=== PATIENT | male | born 1965 | race Caucasian/White ===

== ENCOUNTER 2022-08-17 12:32 | Emergency (ER) | payer MEDICARE ==
[~2022-08-17] VITALS: Ht 188 cm; Wt 106.6 kg
--- NOTE | 2022-08-17 13:15 | ED Integumentary General ---
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 PT REPORTS SEEING THE SPIDER BITE HIS ARM. Source: patient Exam Limitations: no limitations (DONN HERNANDEZ APRN) History of Present Illness Date Seen by Provider: Aug 17, 2022 Time Seen by Provider: 13:00 Initial Comments 57-year-old male presents the ER with reports of a brown recluse spider bite which occurred shortly prior to arrival on his right forearm. Patient reports he saw the spider. He states he has been bitten by brown recluse's in the past and received steroid shots. (DONN HERNANDEZ APRN) Allergies and Home Medications Allergies Coded Allergies: Penicillins (Verified Allergy, Unknown, 08/17/22) Sulfa (Sulfonamide Antibiotics) (Verified Allergy, Unknown, 08/17/22) celecoxib (Verified Allergy, Unknown, 08/17/22) hydroxychloroquine (Verified Allergy, Unknown, 08/17/22) Patient Home Medication List Home Medication List Reviewed: Yes (DONN HERNANDEZ APRN) Review of Systems Review of Systems Constitutional: no symptoms reported Skin: other (Brown recluse spider bite to right forearm) (ODNN HERNANDEZ APRN) Past Bkdvedj-Vbcues-Ashsvt Hx Patient Social History Tobacco Use?: Yes Tobacco type used: Cigarettes Smoking Status: Heavy Tobacco Smoker Smokeless Tobacco Frequency: Never a User Use of E-Cig and/or Vaping dev: No Use of E-Cig and/or Vaping Jarad: Never a User Substance use?: Yes Substance type: Marijuana Substance frequency: Couple times a week Alcohol Use?: No Pt feels they are or have been: No (DONN HERNANDEZ APRN) Physical Exam Vital Signs Vital Signs - First Documented 08/17/22 08/17/22 12:40 13:19 Temp 35.5 Pulse 58 Resp 17 B/P (MAP) 137/88 (104) Pulse Ox 96 O2 Delivery Room Air (JAMES POLANCO MD) Vital Signs Capillary Refill : Less Than 3 Seconds (DONN HERNANDEZ APRN) General Appearance: WD/WN, no apparent distress Neck: supple, normal inspection Cardiovascular: regular rate, rhythm Respiratory: lungs clear, normal breath sounds, no respiratory distress, no accessory muscle use Extremities: normal range of motion Neurologic/Psychiatric: alert, normal mood/affect Skin: normal color, warm/dry Skin Problem Location: upper extremities (Right forearm) Skin Problem Character: other (Whitened area surrounded by spots of erythema) (DONN HERNANDEZ APRN) Progress/Results/Core Measures Results/Orders Vital Signs/I&O 08/17/22 08/17/22 12:40 13:19 Temp 35.5 36.1 Pulse 58 64 Resp 17 15 B/P (MAP) 137/88 (104) 137/86 Pulse Ox 96 O2 Delivery Room Air Room Air (JAMES POLANCO MD) Blood Pressure Mean: 104 Progress Progress Note : Progress Note Patient seen and evaluated, resting comfortably in bed, no acute distress. Patient is requesting a steroid shot. I informed him that this is not the standard of practice for empirically spider bites. Instructed him to follow-up with his primary care provider, the main concern with brown recluse spider bites or wounds that can form. Informed him that if the wound occurs he may need to see wound care. Discharge instructions and return precautions provided. (DONN HERNANDEZ APRN) Departure Impression Primary Impression: Spider bite wound Disposition: HOME, SELF-CARE Condition: Stable Departure-Patient Inst. Decision time for Depature: 13:15 (DONN HERNANDEZ APRN) Referrals: DAVONTE GREENE MD (PCP/Family) Primary Care Physician Patient Instructions: Spider bites Add. Discharge Instructions: Follow-up with primary care provider to monitor for changes in the wound. Your primary care provider might refer you to wound care. Return for significant redness, swelling, fever, or any other new, concerning, or worsening symptoms. All discharge instructions reviewed with patient and/or family. Voiced underst anding. ATTENDING PHYSICIAN NOTE: I was physically present as attending physician in the emergency department during the care of this patient, but I was not directly involved in the decision making or delivery of care for this patient. (JAMES POLANCO MD) DONN HERNANDEZ APRN Aug 17, 2022 13:15 JAMES POLANCO MD Aug 20, 2022 11:45
[2022-08-17 13:19] VITALS: BP 137/86
== END 2022-08-17 13:19 | disposition home or self-care (01) ==
LOC: ER 12:35
DX: S50.861A Insect bite (nonvenomous) of right forearm, initial encounter (principal); F17.210 Nicotine dependence, cigarettes, uncomplicated; W57.XXXA Bitten or stung by nonvenomous insect and other nonvenomous arthropods, initial encounter
CPT/HCPCS: 99281